=== PATIENT | female | born 1980 | race Caucasian/White ===

== ENCOUNTER → 2017-08-25 | Outpatient (CLI) | payer OTHER ==
[~2017-08-25] VITALS: Ht 165.1 cm; Wt 86.2 kg
[~2017-08-25] MED LIST: VITAMIN C500 M6 PO
[2017-08-25 09:38] VITALS: BP 135/69
== END | disposition home or self-care (01) ==
LOC: IVINF 08-23 08:30
DX: Z34.80 Encounter for supervision of other normal pregnancy, unspecified trimester (principal); Z3A.00 Weeks of gestation of pregnancy not specified; Z67.91 Unspecified blood type, Rh negative
CPT/HCPCS: 96372; J2790

== ENCOUNTER 2017-10-07 11:39 | Outpatient (CLI) | payer OTHER ==
[2017-10-07 12:16] VITALS: BP 133/75
[2017-10-07 13:20] LABS: BASOPHIL (%) 0.3 % (0-1); BASOPHIL COUNT 0.1 K/uL (0-0.1); EOSINOPHIL (%) 0.1 % (0-5); HEMATOCRIT 40.4 % (36.0-46.0); HEMOGLOBIN 13.6 G/DL (11.9-15.5); IMMATURE GRANULOCYTE (%) 0.8 % (0.0-0.7); LYMPHOCYTE (%) 2.6 % (15-42); LYMPHOCYTE COUNT 0.5 K/uL (1.0-2.8); MCH 30.9 PG (29.0-34.0); MCHC 33.7 G/DL (30.0-36.0); MCV 91.8 FL (83-99); MONOCYTE (%) 2.5 % (3-12); MONOCYTE COUNT 0.5 K/uL (0-0.8); NEUTROPHIL (%) 93.7 % (45-76); NEUTROPHIL COUNT 17.4 K/uL (1.8-6.4); PLATELET COUNT 363 K/uL (156-360); RBC DIS.WIDTH-CV 11.8 % (11.8-14.6); RBC DIS.WIDTH-SD 39.9 % (39-53); WHITE BLOOD COUNT 18.5 K/uL (4.1-10.2)
[2017-10-07 13:43] LABS: ALBUMIN 3.6 G/DL (3.2-4.8); ALKALINE PHOSPHATASE 112 IU/L (3-129); ALT (GPT) 10 IU/L (3-49); AST (GOT) 15 IU/L (2-34); CHLORIDE 102 MEQ/L (99-109); CREATININE 0.6 MG/DL (0.6-1.3); GFR ESTIMATE (CALCULATED) > 59 mL/min/; GLUCOSE 120 mg/dL (70-99); SODIUM 134 MEQ/L (136-147); TOTAL BILIRUBIN 0.7 MG/DL (0.0-1.0); TOTAL PROTEIN 6.7 G/DL (6.4-8.3); UREA NITROGEN (BUN) 9 mg/dL (9-23)
[2017-10-07 14:44] LABS: GROUP B STREP NEGATIVE (NEGATIVE)
[2017-10-07 16:23] VITALS: BP 134/77
[2017-10-07 18:33] VITALS: BP 117/62
[2017-10-07 19:28] VITALS: BP 127/65
[2017-10-08 07:34] VITALS: BP 120/57
== END 2017-10-08 09:14 | disposition home or self-care (01) ==
LOC: LDRP-OP 11:39 → 2WEST 11:40
PROVIDERS: Advanced Practice Midwife; Obstetrics & Gynecology
DX: O99.89 Other specified diseases and conditions complicating pregnancy, childbirth and the puerperium (principal); R11.2 Nausea with vomiting, unspecified; R19.7 Diarrhea, unspecified; O09.513 Supervision of elderly primigravida, third trimester; O99.343 Other mental disorders complicating pregnancy, third trimester; F31.9 Bipolar disorder, unspecified; Z3A.34 34 weeks gestation of pregnancy
CPT/HCPCS: 59025; 80053; 85025; 87502; 87653; G0378; J2405; J2765; J7120

== ENCOUNTER 2017-11-10 03:56 | Inpatient (IN) | payer OTHER ==
[2017-11-10] VITALS (21 sets, daily range): BP systolic 104–147; BP diastolic 54–95
[~2017-11-10] VITALS: Ht 165.1 cm; Wt 92.7 kg
[2017-11-10] MEDS ORDERED: FLINTSTONES1 EACH PO (04:24)
[2017-11-10] MEDS ORDERED: VALTREX50 MG/ML PO (04:24)
[2017-11-10 06:45] LABS: BASOPHIL (%) 0.3 % (0-1); BASOPHIL COUNT 0.1 K/uL (0-0.1); EOSINOPHIL (%) 0 % (0-5); HEMATOCRIT 34.2 % (36.0-46.0); HEMOGLOBIN 11.7 G/DL (11.9-15.5); IMMATURE GRANULOCYTE (%) 0.7 % (0.0-0.7); LYMPHOCYTE (%) 6.6 % (15-42); LYMPHOCYTE COUNT 1.5 K/uL (1.0-2.8); MCH 30.5 PG (29.0-34.0); MCHC 34.2 G/DL (30.0-36.0); MCV 89.1 FL (83-99); MONOCYTE (%) 3.7 % (3-12); MONOCYTE COUNT 0.9 K/uL (0-0.8); NEUTROPHIL (%) 88.7 % (45-76); NEUTROPHIL COUNT 20.6 K/uL (1.8-6.4); NRBC (%) 0.1 /100 WBC (0-0); PLATELET COUNT 352 K/uL (156-360); RBC DIS.WIDTH-CV 12.5 % (11.8-14.6); RBC DIS.WIDTH-SD 40.1 % (39-53); RED BLOOD COUNT 3.84 M/uL (3.80-5.20); WHITE BLOOD COUNT 23.3 K/uL (4.1-10.2)
[2017-11-10 08:58] LABS: AMPHETAMINE NEGATIVE (500 ng/mL); BARBITURATES NEGATIVE (200 ng/mL); BENZODIAZEPINES NEGATIVE (150 ng/mL); BUPRENORPHINE NEGATIVE (10 ng/mL); COCAINE PRESUMPTIVE POSITIVE (150 ng/mL); METHADONE NEGATIVE (200 ng/mL); METHAMPHETAMINE NEGATIVE (500 ng/mL); OPIATES (MORPHINE) NEGATIVE (100 ng/mL); OXYCODONE NEGATIVE (100 ng/mL); PHENCYCLIDINE NEGATIVE (25 ng/mL); PROPOXYPHENE NEGATIVE (300 ng/mL); THC CANNABINOIDS PRESUMPTIVE POSITIVE (50 ng/mL); TRICYCLIC ANTIDEPRESSANTS NEGATIVE (300 ng/mL)
[2017-11-11 01:22] VITALS: BP 121/65
[2017-11-11 03:29] VITALS: BP 109/55
[2017-11-11 06:51] LABS: BASOPHIL (%) 0.2 % (0-1); EOSINOPHIL (%) 0.4 % (0-5); EOSINOPHIL COUNT 0.1 K/uL (0-0.3); HEMATOCRIT 30.3 % (36.0-46.0); IMMATURE GRANULOCYTE (%) 0.5 % (0.0-0.7); LYMPHOCYTE (%) 9.6 % (15-42); LYMPHOCYTE COUNT 1.9 K/uL (1.0-2.8); MCH 30.1 PG (29.0-34.0); MCV 91.3 FL (83-99); MONOCYTE (%) 4.8 % (3-12); NEUTROPHIL (%) 84.5 % (45-76); NEUTROPHIL COUNT 16.9 K/uL (1.8-6.4); PLATELET COUNT 289 K/uL (156-360); RBC DIS.WIDTH-CV 12.7 % (11.8-14.6); RBC DIS.WIDTH-SD 41.9 % (39-53); RED BLOOD COUNT 3.32 M/uL (3.80-5.20)
[2017-11-11 07:06] VITALS: BP 116/60
[2017-11-11 11:50] LABS: HEPATITIS B SURFACE ANTIGEN Nonreactive; HEPATITIS C ANTIBODY Nonreactive
[2017-11-11 11:51] LABS: ANTI-HEPATITIS A VIRUS (IGM) Nonreactive
[2017-11-11 11:52] LABS: ANTI-HEPATITIS B CORE (IGM) Nonreactive
[2017-11-11 15:12] VITALS: BP 132/62
[2017-11-11 19:18] VITALS: BP 131/73
[2017-11-11 23:42] VITALS: BP 136/78
[2017-11-12 22:15] VITALS: BP 138/65
[2017-11-13 07:31] VITALS: BP 133/73
[2017-11-13] MEDS ORDERED: MOTRIN600 MG PO (08:46)
[2017-11-13] MEDS ORDERED: ENDOCET 5-3251 EACH PO (08:46)
== END 2017-11-13 13:41 | disposition home or self-care (01) | DRG 765 ==
LOC: LDRP-OP 03:56 → 2WEST 03:57 → LDRP-OP 12-12 05:34
PROVIDERS: Advanced Practice Midwife; Obstetrics & Gynecology
DX: O99.324 Drug use complicating childbirth (principal); O98.52 Other viral diseases complicating childbirth; F14.10 Cocaine abuse, uncomplicated; B00.9 Herpesviral infection, unspecified; O99.344 Other mental disorders complicating childbirth; F31.9 Bipolar disorder, unspecified; O76 Abnormality in fetal heart rate and rhythm complicating labor and delivery; D62 Acute posthemorrhagic anemia; F12.10 Cannabis abuse, uncomplicated; O99.334 Smoking (tobacco) complicating childbirth; O99.02 Anemia complicating childbirth; O36.0930 Maternal care for other rhesus isoimmunization, third trimester, not applicable or unspecified; O98.32 Other infections with a predominantly sexual mode of transmission complicating childbirth; O99.340 Other mental disorders complicating pregnancy, unspecified trimester; O69.81X0 Labor and delivery complicated by cord around neck, without compression, not applicable or unspecified; E66.3 Overweight; Z3A.39 39 weeks gestation of pregnancy; Z30.2 Encounter for sterilization; Z37.0 Single live birth
CPT/HCPCS: 80074; 83030; 84999; 85025; 86850; 86900; 86901; 88302; 88307; C1755; J0595; J0690; J1170; J1885; J2274; J2405; J2765; J2790; J3010; J7120